=== PATIENT | female | born 1975 | race American Indian/Alaskan Native ===

== ENCOUNTER 2018-10-11 18:29 | Emergency (ER) | payer MEDICARE, MEDICAID ==
--- NOTE | 2018-10-11 19:37 | EDM.PDOC ---
ED HPI GENERAL MEDICAL PROBLEM - General Chief Complaint: Burn Stated Complaint: INFECTED BURN RIGHT ARM Time Seen by Provider: 10/11/18 19:21 Source of Information: Reports: Patient, Family, RN Notes Reviewed History Limitations: Reports: No Limitations - History of Present Illness INITIAL COMMENTS - FREE TEXT/NARRATIVE: 43-year-old female presents emergency department today with a burn on her forearm right side she injured this on the oven it is about a week old she has been taking care of at home unfortunately over the last day or so she developed some red streaks that are going up her arm she is not had any fevers Right Lower Arm Pain Score (Numeric/FACES): 5 - Related Data Allergies Allergy/AdvReac Type Severity Reaction Status Date / Time cephalexin [Cephalexin] Allergy Severe Rash Verified 10/11/18 19:24 Penicillins Allergy Severe Rash Verified 10/11/18 19:24 Sulfa (Sulfonamide Allergy Severe Rash Verified 10/11/18 19:24 Antibiotics) Home Meds: Home Meds Paliperidone [Invega] 6 mg PO DAILY 12/10/12 [History] Albuterol [Ventolin HFA] 1 - 2 puff INH Q4H PRN 12/13/12 [History] Fluticasone/Salmeterol [Advair Hfa 230-21 Mcg Inhaler] 1 puff INH BID 08/12/15 [ History] Past Medical History Respiratory History: Reports: Asthma Genitourinary History: Reports: Chronic Renal Insuffiency Other Genitourinary History: stage 3 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: Musculoskeletal History: Reports: Back Pain, Chronic Other Endocrine/Metabolic History: pre diabetic - Past Surgical History GI Surgical History: Reports: Appendectomy Female Surgical History: Reports: Tubal Ligation Social & Family History - Tobacco Use Smoking Status *Q: Former Smoker Used Tobacco, but Quit: Yes Month/Year Tobacco Last Used: 9 years - Caffeine Use Caffeine Use: Reports: Coffee, Soda, Tea - Recreational Drug Use Recreational Drug Use: No ED ROS GENERAL - Review of Systems Review Of Systems: See Below Skin: Reports: Pallor, Rash, Erythema, Wound ED EXAM, BURN/SMOKE INHALATION - Physical Exam Exam: See Below Text/Narrative:: Examination of the wound she does have a healing Escher approximately 1 cm x 4 cm there is redness around that but she has red streaks going anteriorly and posteriorly from the wound it is warm to the touch tender to the touch Exam Limited By: No Limitations General Appearance: Alert, WD/WN, No Apparent Distress Course - Vital Signs Last Recorded V/S: Last Vital Signs Temp 98.0 F 10/11/18 19:22 Pulse 92 10/11/18 19:22 Resp 16 10/11/18 19:22 BP 143/93 H 10/11/18 19:22 Pulse Ox 99 10/11/18 19:22 Departure - Departure Time of Disposition: 19:36 Disposition: Home, Self-Care 01 Condition: Fair Clinical Impression: Cellulitis of right arm - Discharge Information Referrals: Justo Choi MD [Primary Care Provider] - Additional Instructions: Take full course of antibiotics, use Tylenol or Motrin as needed for pain control, Please followup with your primary care provider in 5-7 days if not better, please call return to the emergency department with worsening of symptoms. - Assessment/Plan Plan: Assessment Acuity = acute Site and laterality = partial thickness burn right forearm with cellulitis Etiology = secondary to trauma with an oven Manifestations = none Location of injury = Home Lab values = none Plan Because of her antibiotic history to allergies elected treatment clindamycin 300 mg by mouth every 6 hours 10 days follow-up with primary care in 5-7 days if no improvement This note was dictated using [employer] voice recognition software please call with any questions on syntax or grammar.
[2018-10-11 20:13] VITALS: BP 143/93; PULSE 92
== END 2018-10-11 19:47 | disposition home or self-care (01) ==
LOC: JP.ED 18:29
DX: T22.211A Burn of second degree of right forearm, initial encounter (principal); T31.0 Burns involving less than 10% of body surface; L03.113 Cellulitis of right upper limb; J45.909 Unspecified asthma, uncomplicated; N18.3 Chronic kidney disease, stage 3 (moderate); Z88.1 Allergy status to other antibiotic agents; Z88.0 Allergy status to penicillin; Z88.2 Allergy status to sulfonamides; Z79.899 Other long term (current) drug therapy; Z87.891 Personal history of nicotine dependence; X19.XXXA Contact with other heat and hot substances, initial encounter
CPT/HCPCS: 99283

== ENCOUNTER 2018-12-24 07:18 | Day surgery (SDC) | payer MEDICARE, MEDICAID ==
[~2018-12-24 07:18] MED LIST: Bupivacaine 0.5% 50 ML MDV ONE; Lidocaine 1% with EPINEPHrine 1:100,000 50 ML MDV ONE
[2018-12-24] MEDS ORDERED: Dextrose 5%-Lactated Ringers 1,000 ML IV SCH (07:45)
[2018-12-24] MEDS ORDERED: Midazolam 1 MG/ML 2 ML SDV ONE (07:52)
[2018-12-24] MEDS ORDERED: Propofol 200 MG/20 ML SDV ONE ×2 (07:52→09:40)
[2018-12-24] MEDS ORDERED: fentaNYL 100 MCG/2 ML SDV ONE (07:52)
[2018-12-24 11:20] VITALS: BP 121/73; PULSE 77
--- NOTE | 2018-12-28 12:59 | OR ---
DATE OF PROCEDURE: 12/24/2018 SURGEON: Luther Goodrich MD PREOPERATIVE DIAGNOSES: 1. Enlarging epidermoid cyst, posterior neck. 2. Multiple chronically irritated skin tags, located bilaterally in the eyelid areas and the neck. OPERATIVE PROCEDURES: 1. Excision of an epidermoid cyst from the posterior neck with layered closure (24849 [id number]). 2. Excision of multiple bilateral skin tags involving the areas around the eyes and neck ([id number]). ANESTHESIA: Local plus IV sedation. INDICATION FOR PROCEDURE: The patient presents with an enlarging epidermoid cyst from the posterior neck, which has become somewhat reddened and inflamed. She also has multiple irritated skin tags located bilaterally along the eye areas and the neck and is to have these excised. Potential risks, including bleeding, infection, and some cosmetic deformity related to tag removal, were all reviewed, and the patient wishes to proceed. DETAILS OF PROCEDURE: The patient was taken to the operating room and placed in a left lateral decubitus position. IV sedation was administered, after which the area around the posterior neck was initially prepped and draped and anesthetized with 1% lidocaine mixed with Marcaine. A transversely-oriented elliptical incision was made and carried down through the skin and subcutaneous tissue and the epidermoid cyst then removed intact. The cyst itself measured 2.2 cm. Subsequent incision length was 3.5 cm. The incision was closed with 2 layers of 3-0 Vicryl stitch deep and then a 5-0 Prolene skin stitch and a dressing applied. The patient was then placed back into the supine position, and the areas of the skin tags were then prepped and draped. A total of 24 skin tags were then removed. Each of these areas was anesthetized with 1% lidocaine with epinephrine. One of the sites required a small Band-Aid placed, and the other had a little bit of a wider skin area that was opened, and this was closed with a [id number] of 6-0 Vicryl stitch, and the procedure was then concluded. The patient was taken to the recovery room in satisfactory condition. Luther Goodrich MD /[id number]
== END 2018-12-24 11:22 | disposition home or self-care (01) ==
LOC: JP.SDS 07:18
PROVIDERS: ATTEND Surgery
DX: L72.0 Epidermal cyst (principal); L91.8 Other hypertrophic disorders of the skin; K21.9 Gastro-esophageal reflux disease without esophagitis; F31.9 Bipolar disorder, unspecified; N18.9 Chronic kidney disease, unspecified; Z87.891 Personal history of nicotine dependence
CPT/HCPCS: 11200; 11201; 11423; 12042; 88304; J2250; J2704; J3010; J3490; J7042

== ENCOUNTER 2019-06-12 20:57 | Emergency (ER) | payer MEDICARE, MEDICAID ==
[2019-06-12 21:15] VITALS: BP 138/92; PULSE 90
--- NOTE | 2019-06-12 21:46 | EDM.PDOC ---
ED HPI GENERAL MEDICAL PROBLEM - General Chief Complaint: Respiratory Problem Stated Complaint: COUGH Time Seen by Provider: 06/12/19 21:30 Source of Information: Reports: Patient, Old Records, RN History Limitations: Reports: No Limitations - History of Present Illness INITIAL COMMENTS - FREE TEXT/NARRATIVE: 44 yo female presents wanting her lungs checked out because there is a bug going through her house. No fever. Some cough. Cough occasionally productive. Nasal discharge clear. No muscle aches or sore throat. No asthma hx. Onset: Gradual Duration: Day(s):, Constant Location: Reports: Chest Quality: Reports: Other (no pain) Severity: Mild Improves with: Reports: None Worsens with: Reports: Other (unknown) Context: Reports: Other (See HPI) Associated Symptoms: Reports: Cough. Denies: Fever/Chills, Nausea/Vomiting, Rash, Shortness of Breath Treatments X RAY CONSULTANT: Reports: Other (see below) (none) upper chest Pain Score (Numeric/FACES): 2 - Related Data Allergies Allergy/AdvReac Type Severity Reaction Status Date / Time cephalexin [Cephalexin] Allergy Severe Rash Verified 06/12/19 21:25 Penicillins Allergy Severe Rash Verified 06/12/19 21:25 Sulfa (Sulfonamide Allergy Severe Rash Verified 06/12/19 21:25 Antibiotics) Home Meds: Home Meds Paliperidone [Invega] 9 mg PO BEDTIME 06/12/19 [History] Past Medical History HEENT History: Reports: Otitis Media Cardiovascular History: Reports: High Cholesterol Respiratory History: Reports: Asthma Genitourinary History: Reports: Chronic Renal Insuffiency Other Genitourinary History: 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: Musculoskeletal History: Reports: Back Pain, Chronic Neurological History: Reports: Seizure Psychiatric History: Reports: Anxiety, Bipolar Endocrine/Metabolic History: Reports: Other (See Below) Other Endocrine/Metabolic History: pre diabetic - Infectious Disease History Infectious Disease History: Reports: Chicken Pox - Past Surgical History HEENT Surgical History: Reports: Adenoidectomy GI Surgical History: Reports: Appendectomy Female Surgical History: Reports: Tubal Ligation Social & Family History - Family History Family Medical History: Noncontributory - Tobacco Use Smoking Status *Q: Never Smoker - Caffeine Use Caffeine Use: Reports: Coffee, Soda - Recreational Drug Use Recreational Drug Use: No ED ROS GENERAL - Review of Systems Review Of Systems: See Below Constitutional: Reports: No Symptoms HEENT: Reports: No Symptoms Respiratory: Reports: Shortness of Breath (minimal), Cough, Sputum (occasional) . Denies: Wheezing, Pleuritic Chest Pain, Hemoptysis Cardiovascular: Reports: No Symptoms GI/Abdominal: Reports: No Symptoms : Reports: No Symptoms Musculoskeletal: Reports: No Symptoms Skin: Reports: No Symptoms Neurological: Reports: No Symptoms ED EXAM, GENERAL - Physical Exam Exam: See Below Exam Limited By: No Limitations General Appearance: Alert, WD/WN, No Apparent Distress Eye Exam: Bilateral Eye: EOMI, PERRL Ears: Normal External Exam, Normal Canal, Hearing Grossly Normal, Normal TMs Ear Exam: Bilateral Ear: Auricle Normal, Canal Normal, TM normal Nose: Normal Inspection, Normal Mucosa, No Blood Throat/Mouth: Normal Inspection, Normal Lips, Normal Oropharynx, Normal Voice, No Airway Compromise Head: Atraumatic, Normocephalic Neck: Normal Inspection Respiratory/Chest: No Respiratory Distress, Lungs Clear, Normal Breath Sounds, No Accessory Muscle Use Cardiovascular: Regular Rate, Rhythm, No Edema Back Exam: Normal Inspection. No: CVA Tenderness (R), CVA Tenderness (L) Extremities: Normal Inspection, Normal Range of Motion, Non-Tender, No Pedal Edema Neurological: Alert, Oriented, CN II-XII Intact, Normal Cognition, No Motor/ Sensory Deficits Psychiatric: Normal Affect, Normal Mood Skin Exam: Warm, Dry, Intact, Normal Color, No Rash Course - Vital Signs Last Recorded V/S: Last Vital Signs Temp 36.8 C 06/12/19 21:27 Pulse 90 06/12/19 21:27 Resp 16 06/12/19 21:27 BP 138/92 H 06/12/19 21:27 Pulse Ox 96 06/12/19 21:27 Departure - Departure Time of Disposition: 21:45 Disposition: Home, Self-Care 01 Condition: Good Clinical Impression: Viral respiratory illness - Discharge Information *PRESCRIPTION DRUG MONITORING PROGRAM REVIEWED*: Not Applicable *COPY OF PRESCRIPTION DRUG MONITORING REPORT IN PATIENT ELOY: Not Applicable Instructions: Viral Respiratory Infection, [id number] Referrals: Justo Choi MD [Primary Care Provider] - Additional Instructions: Avoid any smoke exposure. Use Robitussin DM as needed for cough. Recheck with your doctor if worse. Sepsis Event Note - Evaluation Sepsis Screening Result: No Definite Risk - Focused Exam Vital Signs: Vital Signs Temp Pulse Resp BP Pulse Ox 06/12/19 21:27 36.8 C 90 16 138/92 H 96 06/12/19 21:14 36.8 C 90 16 138/92 H 96 Date Exam was Performed: 06/12/19 Time Exam was Performed: 21:40
== END 2019-06-12 21:49 | disposition home or self-care (01) ==
LOC: JP.ED 20:57 → EEVIPCON 20:57 → JP.ED 21:49
DX: J06.9 Acute upper respiratory infection, unspecified (principal); Z88.0 Allergy status to penicillin; Z88.1 Allergy status to other antibiotic agents; Z88.2 Allergy status to sulfonamides; J45.909 Unspecified asthma, uncomplicated
CPT/HCPCS: 99282; 99283